=== PATIENT | female | born 1990 | race Caucasian/White ===

== ENCOUNTER 2020-10-26 08:58 | Emergency (ER) | payer BC, SELFPAY ==
--- NOTE | ~2020-10-26 | CT_ITS ---
EXAMINATION: CT IAC/mastoids BI w con DATE: 10/26/2020 12:32 INDICATION: Right ear pain. TECHNIQUE: Computed tomography (CT) of the temporal bones was performed with 75 mL Omnipaque 350 intr avenous contrast. Automated exposure control and iterative reconstruction technique were employed. Th e dose-length product was 206.79 mGy-cm. COMPARISON: None FINDINGS: RIGHT TEMPORAL BONE: The internal auditory canal, cochlea, vestibule, semicircular canals, vestibular aqueduct, carotid ca nal, jugular bulb, facial nerve course, ossicles, Prussak space, scutum, tympanic membrane, external auditory canal, and mastoid air cells are normal. LEFT TEMPORAL BONE: The internal auditory canals, cochlea, vestibule, semicircular canals, vestibular aqueduct, carotid c anal, jugular bulb, facial nerve course, ossicles, Prussak space, scutum, tympanic membrane, external auditory canal, and mastoid air cells are normal. IMPRESSION: 1. Normal temporal bones. Reviewed, dictated and finalized at location A. IMPRESSION: 1. Normal temporal bones.
[2020-10-26 09:06] VITALS: BP 152/104; PULSE 90; RESP 18; TEMP 36.6; O2SAT 99
--- NOTE | 2020-10-26 09:07 | ED.GENADULT ---
HPI - General Adult General Chief complaint: Ear Stated complaint: ear infection with severe pain Time Seen by Provider: 10/26/20 09:03 History of Present Illness HPI narrative: Patient is a 29-year-old female otherwise healthy who comes into the ED today complaining of right ear pain. Patient reports that the right ear pain started 3 days ago, has been constant since onset. She denies any other upper respiratory symptoms. Denies any fevers. She is taking [id number] Tylenol and Aleve with no relief. There is no discharge. No hearing disturbances. She had a televisit yesterday with her primary care physician and was prescribed doxycycline which she did start yesterday. She was diagnosed with an ear infection. Says this is her fourth ear infection in the last 12 months. She has never been seen by a ear nose and throat doctor. Related Data Home Medications Medication Instructions Recorded Confirmed doxycycline hyclate 100 mg PO DAILY 10/26/20 10/26/20 ergocalciferol (vitamin D2) 10/26/20 metformin mg 10/26/20 Allergies Allergy/AdvReac Type Severity Reaction Status Date / Time amoxicillin AdvReac Nausea and Verified 10/26/20 09:15 Vomiting Review of Systems Constitutional: Constitutional: Reports as per HPI, Denies fever(s), Denies night sweats and Denies weakness ENT: Comments: See HPI for right hip pain Cardiovascular: Cardiovascular: Denies chest pain, Denies edema, Denies leg edema, Denies dyspnea and Denies orthopnea Respiratory: Respiratory: Denies cough and Denies dyspnea Gastrointestinal: Gastrointestinal: Denies abdominal pain, Denies constipation, Denies diarrhea, Denies nausea and Denies vomiting Musculoskeletal: Musculoskeletal: Denies abnormal gait, Denies back pain, Denies numbness and Denies tingling Neurologic: Denies Abnormal speech present, Denies abnormal gait, Denies numbness, Denies tingling and Denies weakness Psychiatric: Psychiatric: Denies homicidal ideation and Denies suicidal ideation Exam Const: General: cooperative, healthy appearing, well developed, alert, awake and Physically active Orientation/consciousness: patient oriented x3 Other: Uncomfortable appearing, tearful HENMT: Head: normal to inspection, normocephalic and atraumatic Ears: hearing grossly normal bilaterally and mastoids normal Mouth: Yes Normal oral and palatal mucosa present, Yes lip normal and Yes moist mucous membranes Teeth and gingiva: dentition normal and gingiva normal Throat: posterior oropharynx normal Other: Right external ear: He does have tenderness with movement of tragus. There is no mastoid tenderness or edema or overlying rash. There is no pain with movements of pinna. External auditory canal is slightly erythematous but no significant edema and there is no drainage. TM is not erythematous. There is no rupture. There does appear to be minimal middle ear effusion. Nasal mucosa slightly edematous. Oropharynx is clear. No obvious dental infection. No cervical adenopathy. Eyes: General: appearance normal, both eyes and all related structures Pupils: Equal, round and reactive pupils present EOM: EOMs intact bilaterally Neck: Neck: normal visual inspection Chest: Chest palpation & inspection: normal inspection of the chest and no tenderness Resp: Effort & Inspection: normal respiratory effort and able to speak in complete sentences Auscultation: clear to auscultation bilaterally Cardio: Rate: regular rate Rhythm: regular rhythm GI: Inspection: normal to inspection GI Palp: No abdominal tenderness : General: Yes no CVA tenderness Back/Spine/Pelvis: Back: no CVA tenderness Skin: General skin exam: normal color and no rashes or lesions noted Lesions: no lesions Neuro: General: patient oriented x3, no focal motor deficits and CN's II-XI intact bilaterally Cranial nerves: Yes Equal, round and reactive pupils present Speech: No Abnormal speech present Extrem: General: nor
[2020-10-26] MEDS: PROPARACAINE HCL 0.5% 15 ML OPHTH SOLN 4 DROP XX (10:11)
[2020-10-26] MEDS: HYDROcodone/acetaminophen (*CRX) 5-325 MG TABLET 1 TAB PO (10:51)
[2020-10-26] MEDS: KETOROLAC (*BKC) 60 MG/2 ML VIAL IM (10:53)
[2020-10-26] MEDS: methylPREDNISolone SOD SUCC 125 MG VIAL IM (10:55)
[2020-10-26 11:51] LABS: Basophils Percent Auto 0.4 % (0.2-1.2); Eosinophils Absolute Auto 0.1 K/mm3 (0-0.3); Eosinophils Percent Auto 0.8 % (0-4.4); Hematocrit 42.1 % (37.0-47.0); Hemoglobin 13.7 g/dL (12.0-15.0); Immature Granulocyte Absolute 0.03 K/mm3 (0.00-0.031); Immature Granulocyte Percent A 0.4 % (0-0.5); Lymphocytes Absolute Auto 2.66 K/mm3 (0.9-3.2); Lymphocytes Percent Auto 32.1 % (18.3-44.2); Mean Corpuscular HGB Conc 32.5 g/dl (32-36); Mean Corpuscular Hemoglobin 27.8 pg (26-34); Mean Corpuscular Volume 85.4 fl (80-100); Mean Platelet Volume 9.3 fl (7.4-10.4); Monocytes Absolute Auto 0.5 K/mm3 (0.1-0.6); Monocytes Percent Auto 6.2 % (2.6-8.5); Neutrophils Percent Auto 60.1 % (45.5-73.1); Platelet Count Result 283 k/mm3 (150-375); Red Blood Count 4.93 M/mm3 (4.2-5.4); Red Cell Distribution Width 13.3 % (11.5-14.5); White Blood Count 8.3 K/mm3 (4.5-10.0)
[2020-10-26] MEDS: MORPHINE SULFATE (*CRX) 4 MG/ML INJ IV PUSH (11:52)
[2020-10-26 12:02] LABS: Alanine Aminotransferase 18 U/L (4-35); Albumin Level 4.2 g/dL (3.5-5.1); Alkaline Phosphatase 61 U/L (38-126); Anion Gap 7 mmol/L (8-16); Aspartate Amino Transferase 27 U/L (14-36); Bilirubin,Total 0.5 mg/dL (0.2-1.3); Blood Urea Nitrogen 12 mg/dL (7-17); Calcium 8.8 mg/dL (8.4-10.2); Carbon Dioxide 24 mmol/L (22-30); Chloride 107 mmol/L (98-107); Estimated Glomerular Filt Rate > 60; Glucose 95 mg/dL (65-105); Potassium 4.3 mmol/L (3.4-5.0); Sodium 138 mmol/L (137-145)
[2020-10-26 12:07] VITALS: BP 124/81; PULSE 76; RESP 17; O2SAT 100
== END 2020-10-26 13:03 | disposition home or self-care (01) ==
PROVIDERS: Physician Assistant Medical; Emergency Provider Emergency Medicine; PCP Nurse Practitioner Family
DX: M26.601 Right temporomandibular joint disorder, unspecified (principal)
CPT/HCPCS: 36415; 70481; 80053; 81025; 85025; 96372; 96374; 99284; A9270; J1885; J2270; J2930; Q9967